=== PATIENT | female | born 2000 | race Asian ===

== ENCOUNTER 2020-03-26 13:20 | Emergency (ER) | payer OTHER ==
[~2020-03-26] VITALS: Ht 160 cm; Wt 57.6 kg
--- NOTE | 2020-03-26 13:35 | NUR ---
Pt brought back from triage with chief complaint of sob & sudden RICHTER lasting about 20mins, all have resolved just feels tired at this time. Pt denies any other symptoms. ER [employer] Gemma Hawk at bedside for eval.
[2020-03-26] MEDS ORDERED: ELET40TA PO (13:43)
[2020-03-26] MEDS ORDERED: VENL37.58 PO (13:43)
[2020-03-26 13:57] LABS: BASOPHILS # (AUTO) 0.04 x10^3/uL (0-0.3); BASOPHILS % (AUTO) 1 % (0-1); EOSINOPHILS # (AUTO) 0.25 x10^3/uL (0-0.8); EOSINOPHILS % (AUTO) 4 % (1-7); LYMPHOCYTES # (AUTO) 1.82 x10^3/uL (1-6.1); LYMPHOCYTES % (AUTO) 26 % (22-44); MD NO; MEAN CORPUSCULAR HEMOGLOBIN 28.6 pg (27.0-34.8); MEAN CORPUSCULAR HGB CONC 33.6 g/dL (32.4-35.8); MEAN CORPUSCULAR VOLUME 84.9 fL (80-100); MEAN PLATELET VOLUME 8.1 fL (7.4-10.4); MONOCYTES # (AUTO) 0.64 x10^3/uL (0-1.4); MONOCYTES % (AUTO) 9 % (2-9); NEUTROPHILS # (AUTO) 4.35 x10^3/uL (1.8-8.0); NEUTROPHILS % (AUTO) 61 % (42-75); PLATELET COUNT 353 x10^3/uL (130-400); RED CELL DISTRIBUTION WIDTH 13.4 % (9.6-15.2)
[2020-03-26] MEDS ORDERED: SODIUM CHLORIDE 0.9% 1,000ML IVBOLUS ONE (14:00)
--- NOTE | 2020-03-26 14:00 | NUR ---
steady ambulation to bathroom.
[2020-03-26 14:03] VITALS: BP 122/86
[2020-03-26 14:06] LABS: ALANINE AMINOTRANSFERASE 26 U/L (12-78); ANION GAP 5 mmol/L (5-15); CALCIUM 8.5 mg/dL (8.5-10.1); CHLORIDE 110 mmol/L (98-107)
[2020-03-26 14:11] LABS: ALKALINE PHOSPHATASE 111 U/L (45-117); BILIRUBIN,TOTAL 0.5 mg/dL (0.2-1.0); FREE T4 (FREE THYROXINE) 1.02 ng/dL (0.76-1.46); TOTAL PROTEIN 7.9 g/dL (6.4-8.2)
[2020-03-26 14:14] LABS: MICROSCOPIC NOT IND
--- NOTE | 2020-03-26 14:27 | NUR ---
REGGIE Hawk at bedside to discuss poc.
--- NOTE | 2020-03-26 14:32 | NUR ---
dc instructions reviewed.
== END 2020-03-26 14:58 | disposition home or self-care (01) ==
LOC: ED 14:30
DX: G43.909 Migraine, unspecified, not intractable, without status migrainosus (principal); I95.1 Orthostatic hypotension; R53.83 Other fatigue; R06.02 Shortness of breath; R42 Dizziness and giddiness; R00.0 Tachycardia, unspecified; R53.1 Weakness
CPT/HCPCS: 36415; 80053; 81003; 84439; 84443; 84703; 85025; 93005; 99284; J7030